=== PATIENT | male | born 1980 | race Hispanic/Latino ===

== ENCOUNTER 2020-08-06 08:36 | Emergency (ER) | payer SELFPAY ==
--- NOTE | 2020-08-06 09:06 | Event Note ---
ED Screening Note Date of service: 08/06/20 Time: 09:05 ED Screening Note: Patient complains of left upper abdominal pain x3 days Admits to vomiting Denies hematemesis/coffee-ground emesis, hematochezia/melena, or fever No history of abdominal surgeries per patient Heart rate noted to be 116 Patient holding abdomen and appears to be uncomfortable This initial assessment/diagnostic orders/clinical plan/treatment(s) is/are subject to change based on patients health status, clinical progression and re- assessment by fellow clinical providers in the ED. Further treatment and workup at subsequent clinical providers discretion. Patient/guardian urged not to elope from the ED as their condition may be serious if not clinically assessed and managed. Initial orders include: Labs CT
[2020-08-06 09:13] VITALS: BP 140/86
[2020-08-06 10:54] LABS: Basophils # (Auto) 0.1 K/mm3 (0.0-0.1); Basophils % (Auto) 1.1 % (0.0-1.8); Eosinophils % (Auto) 0.4 % (0.0-4.3); Hematocrit 52.5 % (35.5-45.6); Hemoglobin 18.3 gm/dl (11.8-15.2); Lymphocytes # (Auto) 2.5 K/mm3 (1.2-5.4); Lymphocytes % (Auto) 26.4 % (13.4-35.0); Mean Corpuscular HGB Conc 35 % (32-34); Mean Corpuscular Volume 94 fl (84-94); Monocytes # (Auto) 0.6 K/mm3 (0.0-0.8); Monocytes % (Auto) 6.5 % (0.0-7.3); Platelet Count 274 K/mm3 (140-440); Red Cell Distribution Width 13.3 % (13.2-15.2)
[2020-08-06 11:14] LABS: Alanine Aminotransferase 68 units/L (7-56); Albumin 4.9 g/dL (3.9-5); Blood Urea Nitrogen 8 mg/dL (9-20); Calcium 9.7 mg/dL (8.4-10.2); Hemolysis Index 21
[2020-08-06 11:17] LABS: BUN/Creatinine Ratio 11
[2020-08-06] MEDS ORDERED: SODIUM CHLORIDE 0.9% 1000 ML 1,000 ML IV ONE (11:47)
[2020-08-06] MEDS ORDERED: KETOROLAC 30 MG/1 ML INJ IV ONE (11:47)
--- NOTE | 2020-08-06 11:47 | Emergency Department Report ---
ED General Adult HPI - General Chief complaint: Abdominal Pain Stated complaint: ABD PAINS Time Seen by Provider: 08/06/20 09:00 Source: patient Mode of arrival: Ambulatory Limitations: No Limitations - History of Present Illness Initial comments: Patient is a 39-year-old male who presents to the emergency department 1 week following an injury sustained to his left upper abdomen while he was "wrestling" with coworkers. Patient notes one of his coworkers fell on top of him, has had persistent sharp discomfort to left upper abdomen since. Patient denies chest pain or shortness of breath, denies fever, denies nausea vomiting diarrhea, denies dysuria. - Related Data Allergies Allergy/AdvReac Type Severity Reaction Status Date / Time No Known Allergies Allergy Unverified 08/06/20 09:01 ED Review of Systems ROS: Stated complaint: ABD PAINS Other details as noted in HPI Comment: All other systems reviewed and negative Constitutional: denies: chills, fever Eyes: denies: eye pain, eye discharge, vision change ENT: denies: ear pain, throat pain Respiratory: denies: cough, shortness of breath, wheezing Cardiovascular: denies: chest pain, palpitations Endocrine: no symptoms reported Gastrointestinal: denies: abdominal pain, nausea, diarrhea Genitourinary: denies: urgency, dysuria Musculoskeletal: denies: back pain, joint swelling, arthralgia Skin: denies: rash, lesions Neurological: denies: headache, weakness, paresthesias Psychiatric: denies: anxiety, depression Hematological/Lymphatic: denies: easy bleeding, easy bruising ED Past Medical Hx - Past Medical History Previous Medical History?: No - Surgical History Past Surgical History?: No - Social History Smoking Status: Current Every Day Smoker ED Physical Exam - General Limitations: No Limitations General appearance: alert, in no apparent distress - Head Head exam: Present: atraumatic, normocephalic - Eye Eye exam: Present: normal appearance - ENT ENT exam: Present: mucous membranes moist - Neck Neck exam: Present: normal inspection - Respiratory Respiratory exam: Present: normal lung sounds bilaterally. Absent: respiratory distress - Cardiovascular Cardiovascular Exam: Present: regular rate, normal rhythm. Absent: systolic murmur, diastolic murmur, rubs, gallop - GI/Abdominal GI/Abdominal exam: Present: soft, tenderness (Moderate left upper quadrant tenderness), normal bowel sounds - Rectal Rectal exam: Present: deferred - Extremities Exam Extremities exam: Present: normal inspection - Back Exam Back exam: Present: normal inspection - Neurological Exam Neurological exam: Present: alert, oriented X3 - Psychiatric Psychiatric exam: Present: normal affect, normal mood - Skin Skin exam: Present: warm, dry, intact, normal color. Absent: rash ED Course Vital Signs 08/06/20 08/06/20 09:05 12:34 Temperature 98.1 F Pulse Rate 112 H Respiratory 22 18 Rate Blood Pressure 140/86 O2 Sat by Pulse 97 100 Oximetry ED Medical Decision Making - Lab Data Result diagrams: 08/06/20 10:01 08/06/20 10:01 Vital Signs 08/06/20 08/06/20 09:05 12:34 Temperature 98.1 F Pulse Rate 112 H Respiratory 22 18 Rate Blood Pressure 140/86 O2 Sat by Pulse 97 100 Oximetry Labs 08/06/20 08/06/20 08/06/20 10:01 10:01 10:01 WBC 9.3 RBC 5.60 H Hgb 18.3 H Hct 52.5 H MCV 94 MCH 33 H MCHC 35 H RDW 13.3 Plt Count 274 Lymph % (Auto) 26.4 Butler % (Auto) 6.5 Eos % (Auto) 0.4 Baso % (Auto) 1.1 Lymph # (Auto) 2.5 Butler # (Auto) 0.6 Eos # (Auto) 0.0 Baso # (Auto) 0.1 Seg Neutrophils % 65.6 Seg Neutrophils # 6.1 Sodium 142 Potassium 4.4 Chloride 101.1 Carbon Dioxide 27 Anion Gap 18 BUN 8 L Creatinine 0.7 L Estimated GFR > 60 BUN/Creatinine Ratio 11 Glucose 98 Calcium 9.7 Total Bilirubin 0.70 AST 66 H ALT 68 H Alkaline Phosphatase 99 Troponin T < 0.010 Total Protein 7.6 Albumin 4.9 Albumin/Globulin Ratio 1.8 Lipase 28 Urine Color Urine Turbidity Urine pH Ur Specific Pitman Urine Protein Urine Glucose (UA) Urine Ketones Urine Blood Urine Nitrite Urine Bilirubin Urine Urobilinogen Ur Leukocyte Esterase Urine WBC (Auto) Urine RBC (Auto) Urine Mucus 08/06/20 13:10 WBC RBC Hgb Hct MCV MCH MCHC RDW Plt Count Lymph % (Auto) Butler % (Auto) Eos % (Auto) Baso % (Auto) Lymph # (Auto) Butler # (Auto) Eos # (Auto) Baso # (Auto) Seg Neutrophils % Seg Neutrophils # Sodium Potassium Chloride Carbon Dioxide Anion Gap BUN Creatinine Estimated GFR BUN/Creatinine Ratio Glucose Calcium Total Bilirubin AST ALT Alkaline Phosphatase Troponin T Total Protein Albumin Albumin/Globulin Ratio Lipase Urine Color Yellow Urine Turbidity Clear Urine pH 6.0 Ur Specific Pitman 1.018 Urine Protein 30 mg/dl Urine Glucose (UA) Neg Urine Ketones Neg Urine Blood Neg Urine Nitrite Neg Urine Bilirubin Neg Urine Urobilinogen 4.0 Ur Leukocyte Esterase Neg Urine WBC (Auto) < 1.0 Urine RBC (Auto) < 1.0 Urine Mucus 1+ - Radiology Data Referring Physician: LA LOVE Patient Name: PRISCILLA HAYDEN Date of : 1980 Sex: Male Report Date: 2020-08-06 Report Status: Finalized [facility] [place] [address] [id number] Cat Scan Report Signed Patient: PRISCILLA HAYDEN MR#: [id number] : 1980 Acct:[id number] Age/Sex: 39 / M ADM Date: 08/06/20 Loc: ED Attending Dr: Ordering Physician: LA LOVE MD Date of Service: 08/06/20 Procedure(s): CT abdomen pelvis w con Accession Number(s): [id number] cc: LA LOVE MD CT abdomen pelvis w con INDICATION: Abdominal pain. TECHNIQUE: All CT scans at this location are performed using the following dose modulation technique: Automated exposure control. Helical slices were obtained through the abdomen and pelvis following the administration of intravenous contrast. 100 cc of Omnipaque 300 is admi nistered. COMPARISON: None available. FINDINGS: Abdomen: No acute abnormality is seen in the lower chest. There is fatty infiltration of the liver. The spleen, pancreas, adrenal glands, and kidneys show no acute abnormality. The aorta is normal in diameter. There is no obstruction or inflammation. The appendix is unremarkable. There is no adenopathy. No mass lesions are seen. Pelvis: There is no obstruction or inflammation. There are no abnormal fluid collections. Bowel is unremarkable. There is no adenopathy. No mass lesions are seen. On review of bone windows, no acute osseous abnormalities are seen. IMPRESSION: 1. There is no obstruction, inflammation, or free air. There are no abnormal fluid collections. 2. There is fatty infiltration of the liver. Signer Name: Tevin Maya MD Signed: 08/06/2020 2:12 PM Workstation Name: [id number] Transcribed By: SS Dictated By: Tevin Maya MD Electronically Authenticated By: Tevin Maya MD Signed Date/Time: 08/06/20 1412 Critical care attestation.: If time is entered above; I have spent that time in minutes in the direct care of this critically ill patient, excluding procedure time. ED Disposition Clinical Impression: Abdominal injury Disposition: DC-01 TO HOME OR SELFCARE Is pt being admited?: No Condition: Stable Instructions: Blunt Abdominal Trauma Additional Instructions: Follow-up with primary care doctor in 1 to 2 days for reevaluation. Return to the emergency department for worsening symptoms. Referrals: PRIMARY CARE, [Primary Care Provider] - 3-5 Days
[2020-08-06 13:26] LABS: Bilirubin,Urine NEG (Negative); Blood,Urine NEG (Negative); Color,Urine Yellow (Yellow); Mucus,Urine 1+ /HPF; RBC,Urine < 1.0 /HPF (0.0-6.0); WBC,Urine < 1.0 /HPF (0.0-6.0)
--- NOTE | 2020-08-06 14:17 | Cat Scan Report ---
CT abdomen pelvis w con INDICATION: Abdominal pain. TECHNIQUE: All CT scans at this location are performed using the following dose modulation technique: Automated exposure control. Helical slices were obtained through the abdomen and pelvis following the administr ation of intravenous contrast. 100 cc of Omnipaque 300 is administered. COMPARISON: None available. FINDINGS: Abdomen: No acute abnormality is seen in the lower chest. There is fatty infiltration of the liver. T he spleen, pancreas, adrenal glands, and kidneys show no acute abnormality. The aorta is normal in di ameter. There is no obstruction or inflammation. The appendix is unremarkable. There is no adenopathy . No mass lesions are seen. Pelvis: There is no obstruction or inflammation. There are no abnormal fluid collections. Bowel is un remarkable. There is no adenopathy. No mass lesions are seen. On review of bone windows, no acute osseous abnormalities are seen. IMPRESSION: 1. There is no obstruction, inflammation, or free air. There are no abnormal fluid collections. 2. There is fatty infiltration of the liver. Signer Name: Tevin Maya MD Signed: 08/06/2020 2:12 PM Workstation Name: [id number]
== END 2020-08-06 14:28 | disposition home or self-care (01) ==
LOC: ED 08:36
DX: S39.91XA Unspecified injury of abdomen, initial encounter (principal); F17.200 Nicotine dependence, unspecified, uncomplicated; X58.XXXA Exposure to other specified factors, initial encounter; Y93.89 Activity, other specified; Y92.89 Other specified places as the place of occurrence of the external cause; Y99.8 Other external cause status
CPT/HCPCS: 36415; 74177; 80053; 81001; 83690; 84484; 85025; 96361; 96374; 99284; J1885; J7030; Q9967